=== PATIENT | male | born 1975 | race Two or more races ===

== ENCOUNTER 2020-10-06 14:59 | Observation (INO) | payer MEDICAID ==
[~2020-10-06] VITALS: Ht 177.8 cm; Wt 149.7 kg
[~2020-10-06 14:59] MED LIST: ALPR1TAB7 PO; ASPI-231 PO; ATOR20TA PO; CITA-77 PO; ERGO1CAP6 PO; FAMO-12 PO; LISI-275 PO; METF-370 PO; NITR0.4S29 SL; PRAS10TA6 PO; RANO500T2 PO
[2020-10-06 19:00] LABS: Basophils # (auto) 0 10 ^3/uL (0-0.2); Basophils % (auto) 0.5 % (0.0-2.0); Eosinophils # (auto) 0 10 ^3/uL (0-0.8); Eosinophils % (auto) 0.3 % (0.0-7.0); Hematocrit 48.4 % (41.0-53.0); Hemoglobin 15.9 g/dL (13.5-17.5); Lymphocytes # (auto) 1.6 10 ^3/uL (0.4-5.4); Lymphocytes % (auto) 20.9 % (10.0-50.0); Mean Corpuscular Hemoglobin 27.4 pg (28.0-32.0); Mean Corpuscular Hgb Conc. 32.9 g/dL (32.0-36.0); Mean Corpuscular Volume 83.4 fL (80.0-100.0); Monocytes # (auto) 0.5 10 ^3/uL (0-1.3); Monocytes % (auto) 6.2 % (0.0-12.0); Neutrophils # (auto) 5.5 10 ^3/uL (1.6-8.6); Neutrophils % (auto) 72.1 % (37.0-80.0); Nucleated Red Blood Cells % 0.2 %; Platelet Count (auto) 258 10^3/uL (140-450); Red Blood Cells 5.81 10^6/uL (4.5-5.90); Red Cell Distribution Width 15.1 % (11.8-14.3); White Blood Cell 7.7 10^3/uL (4.4-10.8)
[2020-10-06 19:12] LABS: INR 1.1 (0.9-1.15); Partial Thromboplastin Time 25.9 sec (23.0-31.2)
[2020-10-06 19:37] LABS: Alanine Aminotransferase 31 U/L (16-61); Albumin 3.2 g/dL (3.4-5.0); Anion Gap 10 (5-15); Blood Urea Nitrogen 19 mg/dL (7-18); Calcium 8.7 mg/dL (8.5-10.1); Carbon Dioxide 21 mmol/L (21-32); Chloride 106 mmol/L (98-107); Glucose 96 mg/dL (74-106); Magnesium 2.3 mg/dL (1.6-2.6); Potassium 4.2 mmol/L (3.5-5.1); Sodium 137 mmol/L (136-145)
[2020-10-06 19:42] LABS: Alkaline Phosphatase 130 U/L (45-117); Aspartate Aminotransferase 19 U/L (15-37); BUN/Creatinine Ratio 10.7; Bilirubin, Total 0.9 mg/dL (0.2-1.0); GFR African American 53 mL/min; GFR Non-African American 44 mL/min; Total Protein 8.9 g/dL (6.4-8.2)
[2020-10-06] MEDS ORDERED: ALPRAZolam 0.5 MG TAB PO ONE (21:15)
[2020-10-07] MEDS ORDERED: ONDANSETRON HCL 4 MG/2 ML VIAL IV PRN (01:00)
[2020-10-07] MEDS ORDERED: SOD CHL 0.45% 1,000 ML IV ONE (01:00)
[2020-10-07] MEDS ORDERED: MORPHINE SULF INJ 2 MG/ML SYRINGE 1ML IV PRN (01:00)
[2020-10-07] MEDS ORDERED: hydrALAZINE HCL 20 MG/ML VL IV PRN (01:00)
[2020-10-07] MEDS ORDERED: NITROGLYCERIN 0.4 MG SL TAB SL PRN (01:00)
[2020-10-07] MEDS: ATORVASTATIN 20 MG TAB PO SCH ×2 (09:14→10:00)
[2020-10-07] MEDS: ENOXAPARIN SOD 40 MG/0.4 ML SYRINGE SC SCH ×2 (09:14→10:00)
[2020-10-07] MEDS: METOPROLOL TARTRATE 25 MG TAB PO SCH ×2 (09:15→22:36)
[2020-10-07] MEDS: ASPirin 81 mg TAB PO SCH ×2 (09:15→10:00)
[2020-10-07] MEDS ORDERED: ASCORBIC ACID 500 MG TAB PO SCH (17:00)
[2020-10-07] MEDS ORDERED: CHOLECALCIFEROL (VITD3) 2,000 UNIT CAP/TAB PO SCH (17:00)
[2020-10-07] MEDS ORDERED: ZINC SULFATE 220mg CAP or TAB PO SCH (17:00)
[2020-10-07] MEDS ORDERED: ASCO500T11 PO (17:06)
[2020-10-07] MEDS ORDERED: ALBUAER3 IN (17:06)
[2020-10-07] MEDS ORDERED: ZINC220T6 PO (17:06)
[2020-10-07] MEDS ORDERED: ALPRAZolam 0.5 MG TAB PO ONE (19:15)
[2020-10-07] MEDS ORDERED: ALBUTEROL SULF HFA 90MCG INH 200DOSE IN SCH (22:00)
[2020-10-07] MEDS ORDERED: ALBUTEROL SULF HFA 90MCG INH 200DOSE IN PRN (22:15)
[2020-10-08 05:51] VITALS: BP 109/75
[2020-10-13] MEDS ORDERED: CLOP75TA28 PO (15:28)
== END 2020-10-08 06:41 | disposition home or self-care (01) ==
LOC: EDBD 14:59 → ER 15:00 → TELE-WESTW 15:01 → UNDOADMOB 15:01 → OVERFLOW 10-07 00:49 → UNDOADMOB 10-07 01:21 → OVERFLOW 10-07 01:21 → UNDODISOB 10-08 06:41 → OVERFLOW 10-08 06:41
PROVIDERS: ADMIT Internal Medicine; ATTEND Hospitalist
DX: U07.1 COVID-19 (principal); J12.89 Other viral pneumonia; R07.89 Other chest pain; E66.01 Morbid (severe) obesity due to excess calories; E11.9 Type 2 diabetes mellitus without complications; E55.9 Vitamin D deficiency, unspecified; F41.8 Other specified anxiety disorders; I10 Essential (primary) hypertension; I25.110 Atherosclerotic heart disease of native coronary artery with unstable angina pectoris; E78.5 Hyperlipidemia, unspecified; E78.00 Pure hypercholesterolemia, unspecified; Z79.899 Other long term (current) drug therapy; Z79.84 Long term (current) use of oral hypoglycemic drugs; Z88.0 Allergy status to penicillin; Z79.82 Long term (current) use of aspirin; Z68.42 Body mass index [BMI] 45.0-49.9, adult; Z95.5 Presence of coronary angioplasty implant and graft
CPT/HCPCS: 36415; 71045; 80053; 83735; 83880; 84443; 84484; 85025; 85379; 85610; 85730; 87426; 93005; 96360; 96361; 96372; 99285; G0378; J1650

== ENCOUNTER 2023-05-21 16:10 | Emergency (ER) | payer MEDICAID ==
[~2023-05-21] VITALS: Ht 172.7 cm; Wt 140.8 kg
[~2023-05-21 16:10] MED LIST changes: +ALBUAER3 IN; +ASCO500T11 PO; -ASPI-231 PO; +ASPI1TAB20 PO; +CLOP75TA28 PO; +PRAS10TA19 PO; -PRAS10TA6 PO; +ZINC220T6 PO
[2023-05-21] MEDS ORDERED: MECLIZINE HCL 25 MG TAB PO ONE (17:00)
[2023-05-21] MEDS ORDERED: ONDANSETRON ODT 4 MG TAB PO ONE (17:00)
[2023-05-21 17:26] LABS: Basophils # (auto) 0.1 10 ^3/uL (0-0.2); Basophils % (auto) 0.8 % (0.0-2.0); Eosinophils # (auto) 0.2 10 ^3/uL (0-0.8); Eosinophils % (auto) 2.2 % (0.0-7.0); Hematocrit 46.9 % (41.0-53.0); Hemoglobin 15.4 g/dL (13.5-17.5); Lymphocytes # (auto) 1.2 10 ^3/uL (0.4-5.4); Lymphocytes % (auto) 15.8 % (10.0-50.0); Mean Corpuscular Hgb Conc. 32.9 g/dL (32.0-36.0); Mean Corpuscular Volume 85.1 fL (80.0-100.0); Monocytes # (auto) 0.7 10 ^3/uL (0-1.3); Monocytes % (auto) 8.4 % (0.0-12.0); Neutrophils # (auto) 5.6 10 ^3/uL (1.6-8.6); Neutrophils % (auto) 72.8 % (37.0-80.0); Nucleated Red Blood Cells % 0.1 %; Red Blood Cells 5.52 10^6/uL (4.5-5.90); Red Cell Distribution Width 14.5 % (11.8-14.3); White Blood Cell 7.8 10^3/uL (4.4-10.8)
[2023-05-21 17:44] LABS: Albumin 3.2 g/dL (3.4-5.0); Calcium 8.5 mg/dL (8.5-10.1); Magnesium 2.5 mg/dL (1.6-2.6); Potassium 4.3 mmol/L (3.5-5.1)
[2023-05-21 17:47] LABS: Bilirubin, Total 0.7 mg/dL (0.2-1.0); Total Protein 7.4 g/dL (6.4-8.2)
[2023-05-21 18:01] VITALS: PULSE 80; RESP 20; O2SAT 96
[2023-05-21 18:39] VITALS: BP 127/67; PULSE 77; RESP 13; O2SAT 95
[2023-05-21 19:03] LABS: INR 1.04 (0.9-1.15); Partial Thromboplastin Time 29.3 SEC (24.5-34.5)
[2023-05-21] MEDS ORDERED: MECL25CH38 PO (19:31)
== END 2023-05-21 22:42 | disposition home or self-care (01) ==
LOC: ER 16:10
DX: R42 Dizziness and giddiness (principal); R07.89 Other chest pain; I10 Essential (primary) hypertension; I25.2 Old myocardial infarction; I25.10 Atherosclerotic heart disease of native coronary artery without angina pectoris; E78.5 Hyperlipidemia, unspecified; Z88.0 Allergy status to penicillin; Z79.01 Long term (current) use of anticoagulants; Z79.82 Long term (current) use of aspirin; Z79.899 Other long term (current) drug therapy
CPT/HCPCS: 36415; 70450; 71045; 80053; 83735; 83880; 84484; 85025; 85610; 85730; 93005; 99285; J8597; Q0162

== ENCOUNTER 2023-08-04 19:09 | Inpatient (IN) | payer MEDICAID ==
[~2023-08-04] VITALS: Ht 175.3 cm; Wt 144.5 kg
[~2023-08-04 19:09] MED LIST changes: +MECL25CH38 PO
[2023-08-04 19:42] LABS: Basophils # (auto) 0.1 10 ^3/uL (0-0.2); Basophils % (auto) 1.5 % (0.0-2.0); Eosinophils # (auto) 0.3 10 ^3/uL (0-0.8); Eosinophils % (auto) 3.3 % (0.0-7.0); Hemoglobin 15.2 g/dL (13.5-17.5); Lymphocytes # (auto) 1.8 10 ^3/uL (0.4-5.4); Lymphocytes % (auto) 22.8 % (10.0-50.0); Mean Corpuscular Hemoglobin 27.8 pg (28.0-32.0); Mean Corpuscular Hgb Conc. 32.9 g/dL (32.0-36.0); Mean Corpuscular Volume 84.5 fL (80.0-100.0); Monocytes # (auto) 0.6 10 ^3/uL (0-1.3); Monocytes % (auto) 7.8 % (0.0-12.0); Neutrophils # (auto) 5.1 10 ^3/uL (1.6-8.6); Neutrophils % (auto) 64.6 % (37.0-80.0); Nucleated Red Blood Cells % 0.1 %; Red Blood Cells 5.44 10^6/uL (4.5-5.90); Red Cell Distribution Width 15.2 % (11.8-14.3); White Blood Cell 7.8 10^3/uL (4.4-10.8)
[2023-08-04 20:01] LABS: Alanine Aminotransferase 32 U/L (7-40); Alkaline Phosphatase 93 U/L (46-116); Anion Gap 10 (5-15); Aspartate Aminotransferase 28 U/L (13-40); BUN/Creatinine Ratio 11.7 (10.0-20.0); Blood Urea Nitrogen 21 mg/dL (9-23); Calcium 8.6 mg/dL (8.7-10.4); Carbon Dioxide 23 mmol/L (20-30); Chloride 106 mmol/L (98-107); Glucose 153 mg/dL (74-106); Magnesium 1.8 mg/dL (1.6-2.6); Potassium 4.3 mmol/L (3.5-5.1); Sodium 139 mmol/L (136-145)
[2023-08-04 20:02] LABS: Bilirubin, Total 0.8 mg/dL (0.2-1.0); Total Protein 6.9 g/dL (5.7-8.2)
[2023-08-04] MEDS ORDERED: DEXTROSE (50%) 50ML SYRG IV PRN (22:15)
[2023-08-04] MEDS ORDERED: ONDANSETRON HCL 4 MG/2 ML VIAL IV PRN (22:15)
[2023-08-04] MEDS ORDERED: ACETAMINOPHEN 325 MG TAB PO PRN (22:15)
[2023-08-04] MEDS ORDERED: NITROGLYCERIN 0.4 MG SL TAB SL PRN (22:15)
[2023-08-04] MEDS ORDERED: TEMAZEPAM 15 MG CAP PO PRN (22:15)
[2023-08-04] MEDS ORDERED: MORPHINE SULFATE INJ 2 MG/ml SYRG IV PRN (22:15)
[2023-08-04] MEDS ORDERED: ALBUTEROL SULF 2.5 MG/0.5ML(0.5%) NEB SOLN NEB PRN (22:15)
[2023-08-04 22:24] VITALS: BP 125/65; PULSE 99; RESP 20; TEMP 98.2; O2SAT 100
[2023-08-05] MEDS ORDERED: InsuLIN REG 1unit/0.01ml Soln (100units/ml) SC SCH (07:00)
[2023-08-05] MEDS ORDERED: ACCU-CHEK COMFORT CURVE STRIP VI SCH (07:00)
[2023-08-05] MEDS ORDERED: amLODIPine BESYLATE 5 MG TAB PO SCH (10:00)
[2023-08-05] MEDS ORDERED: ENOXAPARIN SOD 40 MG/0.4 ML SYRINGE SC SCH (10:00)
[2023-08-05] MEDS ORDERED: RANOLAZINE ER 500 MG TAB PO SCH (10:00)
[2023-08-05] MEDS ORDERED: ASPirin 81 mg TAB PO SCH (10:00)
[2023-08-05] MEDS ORDERED: CLOPIDOGREL BISULFATE 75 MG TAB PO SCH (10:00)
[2023-08-05] MEDS ORDERED: LOSARTAN POTASSIUM 25 MG TAB PO SCH (10:00)
[2023-08-05 11:05] LABS: Basophils # (auto) 0.1 10 ^3/uL (0-0.2); Basophils % (auto) 0.6 % (0.0-2.0); Eosinophils # (auto) 0.2 10 ^3/uL (0-0.8); Eosinophils % (auto) 2.6 % (0.0-7.0); Hematocrit 46.7 % (41.0-53.0); Hemoglobin 15.4 g/dL (13.5-17.5); Lymphocytes # (auto) 1.9 10 ^3/uL (0.4-5.4); Lymphocytes % (auto) 22.2 % (10.0-50.0); Mean Corpuscular Hemoglobin 27.9 pg (28.0-32.0); Mean Corpuscular Hgb Conc. 32.9 g/dL (32.0-36.0); Mean Corpuscular Volume 84.9 fL (80.0-100.0); Monocytes # (auto) 0.8 10 ^3/uL (0-1.3); Neutrophils # (auto) 5.5 10 ^3/uL (1.6-8.6); Neutrophils % (auto) 65.6 % (37.0-80.0); Nucleated Red Blood Cells % 0.3 %; Red Cell Distribution Width 15.2 % (11.8-14.3); White Blood Cell 8.4 10^3/uL (4.4-10.8)
[2023-08-05 11:20] LABS: Anion Gap 6 (5-15); Blood Urea Nitrogen 13 mg/dL (9-23); Carbon Dioxide 24 mmol/L (20-30); Chloride 106 mmol/L (98-107); Glucose 98 mg/dL (74-106); Potassium 4.2 mmol/L (3.5-5.1); Sodium 136 mmol/L (136-145)
[2023-08-05] MEDS ORDERED: ATORVASTATIN 20 MG TAB PO SCH (22:00)
== END 2023-08-05 17:59 | disposition left against medical advice (07) | DRG 198 ==
LOC: ER 19:09 → TELE 22:19
PROVIDERS: ADMIT Nurse Practitioner; ATTEND Nurse Practitioner
DX: I24.9 Acute ischemic heart disease, unspecified (principal); E11.9 Type 2 diabetes mellitus without complications; E66.01 Morbid (severe) obesity due to excess calories; E78.5 Hyperlipidemia, unspecified; Z68.42 Body mass index [BMI] 45.0-49.9, adult; I10 Essential (primary) hypertension; I25.119 Atherosclerotic heart disease of native coronary artery with unspecified angina pectoris; I25.2 Old myocardial infarction; Z82.49 Family history of ischemic heart disease and other diseases of the circulatory system; Z83.3 Family history of diabetes mellitus; Z88.0 Allergy status to penicillin; Z98.61 Coronary angioplasty status; F32.A Depression, unspecified
CPT/HCPCS: 36415; 71045; 80048; 80053; 83735; 84484; 85025; 93005; G0378

== ENCOUNTER 2023-09-20 22:41 | Emergency (ER) | payer MEDICAID ==
[~2023-09-20] VITALS: Ht 175.3 cm; Wt 145.0 kg
[2023-09-20 23:26] LABS: Basophils # (auto) 0.1 10 ^3/uL (0-0.2); Basophils % (auto) 0.8 % (0.0-2.0); Eosinophils # (auto) 0.2 10 ^3/uL (0-0.8); Eosinophils % (auto) 2.2 % (0.0-7.0); Hematocrit 45.7 % (41.0-53.0); Hemoglobin 14.9 g/dL (13.5-17.5); Lymphocytes # (auto) 1.7 10 ^3/uL (0.4-5.4); Lymphocytes % (auto) 19.5 % (10.0-50.0); Mean Corpuscular Hemoglobin 27.9 pg (28.0-32.0); Mean Corpuscular Hgb Conc. 32.6 g/dL (32.0-36.0); Mean Corpuscular Volume 85.5 fL (80.0-100.0); Monocytes # (auto) 0.6 10 ^3/uL (0-1.3); Monocytes % (auto) 7.2 % (0.0-12.0); Neutrophils # (auto) 6.1 10 ^3/uL (1.6-8.6); Neutrophils % (auto) 70.3 % (37.0-80.0); Nucleated Red Blood Cells % 0.2 %; Red Blood Cells 5.34 10^6/uL (4.5-5.90); White Blood Cell 8.7 10^3/uL (4.4-10.8)
[2023-09-20 23:34] LABS: INR 1.05 (0.9-1.15); Partial Thromboplastin Time 28.8 SEC (24.5-34.5)
[2023-09-20 23:43] LABS: Alanine Aminotransferase 20 U/L (7-40); Alkaline Phosphatase 80 U/L (46-116); Anion Gap 8 (5-15); Aspartate Aminotransferase 19 U/L (13-40); BUN/Creatinine Ratio 7.4 (10.0-20.0); Bilirubin, Total 0.6 mg/dL (0.2-1.0); Blood Urea Nitrogen 11 mg/dL (9-23); Calcium 8.9 mg/dL (8.5-10.1); Carbon Dioxide 23 mmol/L (20-30); Chloride 110 mmol/L (98-107); Glucose 98 mg/dL (74-106); Potassium 4.3 mmol/L (3.5-5.1); Sodium 141 mmol/L (136-145); Total Protein 7.1 g/dL (5.7-8.2)
[2023-09-20 23:59] LABS: Magnesium 1.8 mg/dL (1.6-2.6)
[2023-09-21 02:43] VITALS: BP 138/96; PULSE 66; RESP 18; TEMP 98.2; O2SAT 98
== END 2023-09-21 02:50 | disposition home or self-care (01) ==
LOC: EDUNIT# 22:41 → EDBD 22:41 → ER 22:41
DX: R07.89 Other chest pain (principal); R42 Dizziness and giddiness; I10 Essential (primary) hypertension; E78.5 Hyperlipidemia, unspecified; F32.9 Major depressive disorder, single episode, unspecified; F41.9 Anxiety disorder, unspecified; I25.2 Old myocardial infarction; Z98.890 Other specified postprocedural states; Z88.8 Allergy status to other drugs, medicaments and biological substances; Z79.899 Other long term (current) drug therapy
CPT/HCPCS: 36415; 71045; 80053; 83735; 83880; 84443; 84484; 85025; 85610; 85730; 93005

== ENCOUNTER 2023-11-15 13:10 | Inpatient (IN) | payer MEDICAID ==
[~2023-11-15] VITALS: Ht 175.3 cm; Wt 145.4 kg
[2023-11-15 13:55] LABS: Urine Epithelial Cast None Seen /hpf (<5)
[2023-11-15 14:04] LABS: Basophils # (auto) 0.1 10 ^3/uL (0-0.2); Basophils % (auto) 0.6 % (0.0-2.0); Eosinophils # (auto) 0.1 10 ^3/uL (0-0.8); Eosinophils % (auto) 1.5 % (0.0-7.0); Hematocrit 48.8 % (41.0-53.0); Lymphocytes # (auto) 1.7 10 ^3/uL (0.4-5.4); Lymphocytes % (auto) 18.6 % (10.0-50.0); Mean Corpuscular Hemoglobin 27.1 pg (28.0-32.0); Mean Corpuscular Hgb Conc. 32.9 g/dL (32.0-36.0); Mean Corpuscular Volume 82.6 fL (80.0-100.0); Monocytes # (auto) 0.5 10 ^3/uL (0-1.3); Monocytes % (auto) 5.1 % (0.0-12.0); Neutrophils # (auto) 6.8 10 ^3/uL (1.6-8.6); Neutrophils % (auto) 74.2 % (37.0-80.0); Nucleated Red Blood Cells % 0.2 %; Red Blood Cells 5.91 10^6/uL (4.5-5.90); Red Cell Distribution Width 14.7 % (11.8-14.3); White Blood Cell 9.2 10^3/uL (4.4-10.8)
[2023-11-15 14:15] LABS: Chloride 109 mmol/L (98-107); Sodium 140 mmol/L (136-145)
[2023-11-15 14:16] LABS: Anion Gap 8 (5-15); Calcium 8.8 mg/dL (8.7-10.4); Carbon Dioxide 23 mmol/L (20-30)
[2023-11-15 14:21] LABS: BUN/Creatinine Ratio 11.3 (10.0-20.0); Blood Urea Nitrogen 17 mg/dL (9-23); Glucose 100 mg/dL (74-106)
[2023-11-15] MEDS ORDERED: ASPirin 325 MG TAB PO ONE (14:30)
[2023-11-15] MEDS ORDERED: NITROGLYCERIN 0.4 MG SL TAB SL ONE (14:30)
[2023-11-15 14:49] LABS: Urine Bacteria NONE SEEN /hpf (None Seen); Urine Blood TRACE /uL (Negative); Urine Clarity Clear (Clear); Urine Color Yellow (Yellow); Urine Hyaline Cast FEW /lpf (0 - 2); Urine Mucus FEW (None Seen); Urine Protein, UAD 1+ (Negative); Urine Specific Gravity 1.022 (1.001-1.035); Urine Urobilinogen Normal (Negative); Urine WBC 2 /hpf (0 - 3); Urine pH 5.5 (5.0-8.0)
[2023-11-15] MEDS ORDERED: NITROGLYCERIN 0.4 MG SL TAB SL PRN (15:15)
[2023-11-15] MEDS ORDERED: ACETAMINOPHEN 325 MG TAB PO PRN (15:15)
[2023-11-15] MEDS ORDERED: HYDROcodone-ACET 5/325MG TAB PO PRN (15:15)
[2023-11-15] MEDS ORDERED: MORPHINE SULFATE INJ 2 MG/ml SYRG IV PRN (15:15)
[2023-11-15] MEDS ORDERED: ONDANSETRON HCL 4 MG/2 ML VIAL IV PRN (15:15)
[2023-11-15] MEDS ORDERED: DOCUSATE SOD 100 MG CAP PO PRN (15:15)
[2023-11-15] MEDS ORDERED: guaiFENesin 200 MG/10 ML UD GT PRN (15:30)
[2023-11-15] MEDS ORDERED: DEXTROSE (50%) 50ML SYRG IV PRN (15:30)
[2023-11-15 16:06] VITALS: BP 139/89; PULSE 93; RESP 18; TEMP 98.1
[2023-11-15] MEDS ORDERED: InsuLIN REG 1unit/0.01ml Soln (100units/ml) SC SCH (17:00)
[2023-11-15] MEDS ORDERED: ACCU-CHEK COMFORT CURVE STRIP VI SCH (17:00)
[2023-11-15] MEDS ORDERED: ATORVASTATIN 20 MG TAB PO SCH (18:00)
[2023-11-15] MEDS ORDERED: LISINOPRIL 5 MG TAB PO SCH (18:00)
[2023-11-15] MEDS ORDERED: FAMOTIDINE 20 MG TAB PO SCH (18:00)
[2023-11-15] MEDS ORDERED: ALBUTEROL SULF 2.5 MG/0.5ML(0.5%) NEB SOLN NEB SCH (18:00)
[2023-11-15] MEDS ORDERED: CITALOPRAM HYDROBR 20 MG TAB PO SCH (18:00)
[2023-11-15] MEDS ORDERED: IPRATROPIUM BROM 0.5 MG/2.5ML INH SOL NEB SCH (18:00)
[2023-11-15] MEDS ORDERED: ASPirin-EC 81 mg tab PO SCH (18:00)
[2023-11-15 18:26] LABS: COVID19 ANTIGEN SOFIA FIA NEGATIVE (NEGATIVE); Rapid Influenza A Negative (Negative); Rapid Influenza B Negative (Negative)
[2023-11-15 18:40] VITALS: PULSE 72; RESP 20; O2SAT 96
[2023-11-15] MEDS ORDERED: RANOLAZINE ER 500 MG TAB PO SCH (22:00)
[2023-11-15] MEDS ORDERED: Alprazolam 1mg PO SCH (22:00)
[2023-11-16] MEDS ORDERED: CLOPIDOGREL BISULFATE 75 MG TAB PO SCH (10:00)
== END 2023-11-15 19:38 | disposition left against medical advice (07) | DRG 198 ==
LOC: ER 13:10 → TELE 15:22
PROVIDERS: ADMIT Nurse Practitioner Family; ATTEND Nurse Practitioner Family
DX: I24.9 Acute ischemic heart disease, unspecified (principal); I11.0 Hypertensive heart disease with heart failure; I50.9 Heart failure, unspecified; E11.9 Type 2 diabetes mellitus without complications; I25.10 Atherosclerotic heart disease of native coronary artery without angina pectoris; E78.5 Hyperlipidemia, unspecified; Z20.822 Contact with and (suspected) exposure to COVID-19; F32.A Depression, unspecified; F41.9 Anxiety disorder, unspecified; Z53.29 Procedure and treatment not carried out because of patient's decision for other reasons; E66.01 Morbid (severe) obesity due to excess calories; Z88.0 Allergy status to penicillin; Z79.899 Other long term (current) drug therapy; Z82.49 Family history of ischemic heart disease and other diseases of the circulatory system; Z83.3 Family history of diabetes mellitus; I25.2 Old myocardial infarction; Z98.61 Coronary angioplasty status; Z68.42 Body mass index [BMI] 45.0-49.9, adult
CPT/HCPCS: 36415; 71045; 80048; 81001; 82962; 84484; 85025; 85379; 87426; 87804; 93005; 99291; G0378

== ENCOUNTER 2024-01-13 14:15 | Inpatient (IN) | payer MEDICAID ==
[~2024-01-13] VITALS: Ht 175.3 cm; Wt 154.6 kg
[2024-01-13 15:00] VITALS: PULSE 85; RESP 22; O2SAT 92
[2024-01-13] MEDS: NITROGLYCERIN 0.4 MG SL TAB SL ONE (15:00)
[2024-01-13 15:02] LABS: Basophils # (auto) 0.1 10 ^3/uL (0-0.2); Eosinophils # (auto) 0.1 10 ^3/uL (0-0.8); Hemoglobin 16.1 g/dL (13.5-17.5); Monocytes # (auto) 0.5 10 ^3/uL (0-1.3)
[2024-01-13 15:05] LABS: Basophils % (auto) 0.9 % (0.0-2.0); Hematocrit 49.1 % (41.0-53.0); Lymphocytes # (auto) 1.3 10 ^3/uL (0.4-5.4); Lymphocytes % (auto) 14.4 % (10.0-50.0); Mean Corpuscular Hemoglobin 26.8 pg (28.0-32.0); Mean Corpuscular Hgb Conc. 32.7 g/dL (32.0-36.0); Mean Corpuscular Volume 81.9 fL (80.0-100.0); Monocytes % (auto) 5.5 % (0.0-12.0); Neutrophils % (auto) 78.2 % (37.0-80.0); Nucleated Red Blood Cells % 0.2 %; Red Cell Distribution Width 15.5 % (11.8-14.3); White Blood Cell 8.9 10^3/uL (4.4-10.8)
[2024-01-13 15:15] LABS: Alanine Aminotransferase 32 U/L (7-40); Albumin 4.2 g/dL (3.2-4.8); Alkaline Phosphatase 119 U/L (46-116); Anion Gap 7 (5-15); Aspartate Aminotransferase 24 U/L (13-40); BUN/Creatinine Ratio 11.2 (10.0-20.0); Bilirubin, Total 1.1 mg/dL (0.2-1.0); Blood Urea Nitrogen 17 mg/dL (9-23); Calcium 9.1 mg/dL (8.5-10.1); Carbon Dioxide 23 mmol/L (20-30); Chloride 111 mmol/L (98-107); Glucose 112 mg/dL (74-106); Potassium 4.4 mmol/L (3.5-5.1); Sodium 141 mmol/L (136-145); Total Protein 7.2 g/dL (5.7-8.2)
[2024-01-13] MEDS: SODIUM CHLORIDE 0.9% 500 ML IV ONE (15:37)
[2024-01-13] MEDS ORDERED: ERGOCALCIFEROL 50,000 UNIT(1.25MG) CAP PO SCH (15:45)
[2024-01-13] MEDS ORDERED: ALPRAZolam 0.5 MG TAB PO PRN (15:45)
[2024-01-13] MEDS ORDERED: NITROGLYCERIN 0.4 MG SL TAB SL PRN (16:00)
[2024-01-13] MEDS ORDERED: MORPHINE SULFATE INJ 2 MG/ml SYRG IV PRN (16:00)
[2024-01-13] MEDS ORDERED: ACETAMINOPHEN 325 MG TAB PO PRN (16:00)
[2024-01-13 16:11] LABS: LDL Cholesterol 92 mg/dL (< 100); Triglycerides 156 mg/dL (< 150)
[2024-01-13 16:13] LABS: Cholesterol 152 mg/dL (< 200); HDL Cholesterol 41 mg/dL (40-59)
[2024-01-13 18:37] VITALS: BP 145/91; PULSE 68; RESP 16; TEMP 98.3; O2SAT 97
[2024-01-13] MEDS: CITALOPRAM HYDROBR 20 MG TAB PO SCH (18:52)
[2024-01-13] MEDS: ASPirin-EC 81 mg tab PO SCH (18:52)
[2024-01-13] MEDS: LISINOPRIL 5 MG TAB PO SCH (18:53)
[2024-01-13] MEDS: ATORVASTATIN 20 MG TAB PO SCH (18:53)
[2024-01-13] MEDS: PRASUGREL HCL 10 MG TAB PO SCH (18:53)
[2024-01-13] MEDS: FAMOTIDINE 20 MG TAB PO SCH (18:53)
[2024-01-13 20:00] VITALS: PULSE 79
[2024-01-13 20:20] VITALS: PULSE 70; RESP 18; O2SAT 97
[2024-01-13 21:00] VITALS: BP 149/96; PULSE 72; RESP 20; TEMP 98.4; O2SAT 90
[2024-01-13] MEDS: ASCORBIC ACID 500 MG TAB PO SCH (21:14)
[2024-01-13] MEDS: RANOLAZINE ER 500 MG TAB PO SCH (21:16)
[2024-01-13] MEDS: MORPHINE SULFATE INJ 2 MG/ml SYRG IV PRN (22:23)
[2024-01-14] VITALS (7 sets, daily range): BP systolic 124–148; BP diastolic 69–93; PULSE 57–85; RESP 16–20; TEMP 98–98.7; O2SAT 92–97
[2024-01-14 04:45] LABS: Basophils # (auto) 0.1 10 ^3/uL (0-0.2); Eosinophils # (auto) 0.1 10 ^3/uL (0-0.8); Nucleated Red Blood Cells % 0.1 %; Red Cell Distribution Width 15.6 % (11.8-14.3)
[2024-01-14 04:48] LABS: Basophils % (auto) 0.7 % (0.0-2.0); Eosinophils % (auto) 0.9 % (0.0-7.0); Hemoglobin 15.5 g/dL (13.5-17.5); Lymphocytes # (auto) 2.2 10 ^3/uL (0.4-5.4); Lymphocytes % (auto) 20.2 % (10.0-50.0); Mean Corpuscular Hemoglobin 26.9 pg (28.0-32.0); Mean Corpuscular Hgb Conc. 32.9 g/dL (32.0-36.0); Mean Corpuscular Volume 81.8 fL (80.0-100.0); Monocytes # (auto) 0.7 10 ^3/uL (0-1.3); Monocytes % (auto) 6.2 % (0.0-12.0); Neutrophils # (auto) 7.7 10 ^3/uL (1.6-8.6); Red Blood Cells 5.75 10^6/uL (4.5-5.90); White Blood Cell 10.7 10^3/uL (4.4-10.8)
[2024-01-14 05:00] LABS: Alanine Aminotransferase 23 U/L (7-40); Albumin 3.9 g/dL (3.2-4.8); Alkaline Phosphatase 105 U/L (46-116); Anion Gap 8 (5-15); BUN/Creatinine Ratio 8.6 (10.0-20.0); Blood Urea Nitrogen 12 mg/dL (9-23); Calcium 9.2 mg/dL (8.7-10.4); Carbon Dioxide 22 mmol/L (20-30); Chloride 109 mmol/L (98-107); Glucose 94 mg/dL (74-106); Sodium 139 mmol/L (136-145)
[2024-01-14 05:01] LABS: Aspartate Aminotransferase 16 U/L (13-40); Bilirubin, Total 1.3 mg/dL (0.2-1.0); Total Protein 7.1 g/dL (5.7-8.2)
[2024-01-14] MEDS: ZINC SULFATE 220mg CAP or TAB PO SCH (09:10)
[2024-01-14] MEDS: CLOPIDOGREL BISULFATE 75 MG TAB PO SCH (09:10)
[2024-01-14] MEDS: ENOXAPARIN SOD 40 MG/0.4 ML SYRINGE SC SCH (09:11)
[2024-01-14] MEDS: METOPROLOL SUCCINATE XL 50 MG TAB PO SCH (18:30)
[2024-01-15] VITALS (8 sets, daily range): BP systolic 111–147; BP diastolic 72–97; PULSE 59–73; RESP 18–20; TEMP 97.7–98.7; O2SAT 92–97
[2024-01-15] MEDS: CLOPIDOGREL BISULFATE 75 MG TAB PO SCH (09:37)
[2024-01-16 05:00] VITALS: BP 105/69; PULSE 66; RESP 17; TEMP 97.9; O2SAT 97
[2024-01-16 08:00] VITALS: BP 137/68; PULSE 80; RESP 20; TEMP 98.6; O2SAT 100
[2024-01-16] MEDS ORDERED: METO25TA93 PO (10:28)
[2024-01-16 12:45] VITALS: BP 129/65; PULSE 80; RESP 18; TEMP 98.6; O2SAT 96
[2024-01-16] MEDS: MECLIZINE HCL 25 MG TAB PO PRN (13:26)
== END 2024-01-16 16:00 | disposition home or self-care (01) | DRG 201 ==
LOC: EDUNIT# 14:15 → EDBD 14:15 → ER 14:29 → TELE 16:02 → TELE-EAST 18:33
PROVIDERS: ADMIT Nurse Practitioner Family; ATTEND Family Medicine
DX: I49.3 Ventricular premature depolarization (principal); I50.33 Acute on chronic diastolic (congestive) heart failure; Z68.43 Body mass index [BMI] 50.0-59.9, adult; I11.0 Hypertensive heart disease with heart failure; R42 Dizziness and giddiness; F41.9 Anxiety disorder, unspecified; E66.01 Morbid (severe) obesity due to excess calories; E78.00 Pure hypercholesterolemia, unspecified; G47.30 Sleep apnea, unspecified; F32.A Depression, unspecified; I25.2 Old myocardial infarction; Z88.0 Allergy status to penicillin; Z83.3 Family history of diabetes mellitus; Z82.49 Family history of ischemic heart disease and other diseases of the circulatory system; Z98.61 Coronary angioplasty status; Z80.3 Family history of malignant neoplasm of breast; Z79.82 Long term (current) use of aspirin
CPT/HCPCS: 36415; 71045; 80053; 80061; 83605; 83880; 83930; 84443; 84484; 85025; 85379; 93005; 93306; 96360; G0378

== ENCOUNTER 2024-10-07 19:27 | Inpatient (IN) | payer MEDICAID ==
[~2024-10-07] VITALS: Ht 167.6 cm; Wt 68.0 kg
[~2024-10-07 19:27] MED LIST changes: +METO25TA93 PO
[2024-10-07 20:08] LABS: Basophils # (auto) 0.1 10 ^3/uL (0-0.2); Basophils % (auto) 0.8 % (0.0-2.0); Eosinophils # (auto) 0.1 10 ^3/uL (0-0.8); Hemoglobin 16.1 g/dL (13.5-17.5); Lymphocytes # (auto) 1.4 10 ^3/uL (0.4-5.4); Monocytes # (auto) 0.4 10 ^3/uL (0-1.3); Neutrophils # (auto) 7.3 10 ^3/uL (1.6-8.6); White Blood Cell 9.3 10^3/uL (4.4-10.8)
[2024-10-07 20:09] LABS: Eosinophils % (auto) 1.2 % (0.0-7.0); Hematocrit 49.1 % (41.0-53.0); Lymphocytes % (auto) 15.5 % (10.0-50.0); Mean Corpuscular Hemoglobin 26.9 pg (28.0-32.0); Mean Corpuscular Hgb Conc. 32.8 g/dL (32.0-36.0); Mean Corpuscular Volume 82.1 fL (80.0-100.0); Monocytes % (auto) 4.2 % (0.0-12.0); Neutrophils % (auto) 78.3 % (37.0-80.0); Nucleated Red Blood Cells % 0.1 %; Platelet Count (auto) 227 10^3/uL (140-450); Red Blood Cells 5.98 10^6/uL (4.5-5.90); Red Cell Distribution Width 15.9 % (11.8-14.3)
[2024-10-07 20:14] LABS: Potassium 4.2 mmol/L (3.5-5.1); Sodium 142 mmol/L (136-145)
[2024-10-07 20:15] LABS: Anion Gap 9 (5-15); Carbon Dioxide 23 mmol/L (20-31)
[2024-10-07 20:16] LABS: Calcium 9.4 mg/dL (8.7-10.4)
--- NOTE | 2024-10-07 20:17 | ED.PDOC ---
HPI Comments 48-year-old male who came to ER via EMS for chest pains. Patient does have history of hypertension, dyslipidemia, CAD, CT, status post cardiac stents. He does have anxiety also. Patient states for the past 2 hours he has been having left shoulder pain, radiating down his left arm and dowm the left side of his chest. States he started feeling short of breath, dizzy and weak. Persistence of symptoms prompted patient to come to the ER. Chief Complaint: Chest Pain Time Seen by MD: 20:16 Primary Care Provider: THUY Reviewed Notes: Nurses Notes Allergies: Coded Allergies: Penicillins (Verified Allergy, Unknown, 06/15/17) Home Meds Active Scripts Metoprolol Succinate (Metoprolol Succinate Er) 25 Mg Tab, 1 TAB PO DAILY, #90 TAB 1 Refill Prov:ROBERT LIMON MD 01/16/24 Meclizine HCl (Meclizine) 25 Mg Chw, 25 MG PO Q8HP PRN, #14 CHW Prov:CHEN OHARA MD 05/21/23 Clopidogrel Bisulfate (Plavix) 75 Mg Tab, 75 MG PO DAILY, #30 MG Prov:CHENG PALACIOS MD 10/13/20 Albuterol Sulfate (VENTOLIN MDI) 90 Mcg Ih, 90 MCG IN Q6HP PRN, #1 INH Prov:CHENG PALACIOS MD 10/07/20 Zinc Sulfate (Zinc Sulfate) 220 Mg Tab, 220 MG PO DAILY, #30 TAB Prov:CHENG PALACIOS MD 10/07/20 Ascorbic Acid (VITAMIN C TABLET) 500 Mg Tb, 500 MG PO BID, #20 MG Prov:CHENG PALACIOS MD 10/07/20 Reported Medications Ergocalciferol (Vitamin D) 50,000 Unt Cap, [address]49[address] UNT PO QWEEKLY, CAP 06/18/17 Ranolazine (Ranexa) 500 Mg Tab, 500 MG PO BID, TAB 06/15/17 Lisinopril (Lisinopril) 5 Mg Tab, 5 MG PO QPM for 30 Days, MG 06/15/17 Nitroglycerin (NTROSTAT SUBLINGUAL) 0.4 Mg Sl, 0.4 MG SL PRN *MAY REPEAT EVERY 5 MINUTES X 3 TOTAL IF NO RELIEF, INITIATE ANALGESIC THERAPY. NOTIFY PHYSICIAN *Do not crush. 06/15/17 Alprazolam (Alprazolam) 1 Mg Tab, 1 TAB PO BID, #60 TAB 06/15/17 Atorvastatin Calcium (Lipitor) 20 Mg Tab, 20 MG PO QPM, TAB 06/15/17 Prasugrel Hydrochloride (Effient) 10 Mg Tab, 10 MG PO QPM, TAB 06/15/17 Famotidine (Famotidine) 20 Mg Tab, 20 MG PO QPM for 30 Days, MG 06/15/17 Aspirin (Aspir-81) 81 Mg Tab, 1 TAB PO QPM, #30 TAB 5 Refills 06/15/17 Citalopram Hydrobromide (Citalopram Hydrobromide) 20 Mg Tab, 20 MG PO QPM for 30 Days, MG 06/15/17 Metformin Hydrochloride (Metformin Hcl) 500 Mg Tab, 500 MG PO QPM for 30 Days, MG 06/15/17 Information Source: Patient, Emergency Med Personnel Mode of Arrival: EMS Severity: Moderate Timing: Hours Duration: Since onset Prehospital treatment: 12 Lead EKG Location: Chest (L) Radiation: No Radiation Quality: Aching Onset: At Rest, With Light Exertion Cardiac Risk Factors: Hyperlipidemia, HTN PE Risk Factors: None Modifying Factors: Nothing Associated Signs and Symptoms: SOB Past Medical History PAST MEDICAL HISTORY: Anxiety, CAD, Depression, High Lipids, HTN, CT Surgical History: PTCA Family History Family History: Family hx of DM, Family hx of heart dipika, Family hx of HTN Social History Smoker: Non-Smoker Alcohol: Rarely Drugs: Denies Drug Use Lives In: Home Constitutional: denies: chills, diaphoresis, fatigue, fever, malaise, sweats, weakness, others EENTM: denies: blurred vision, double vision, ear bleeding, ear discharge, ear drainage, ear pain, ear ringing, eye pain, eye redness, hearing loss, mouth pain, mouth swelling, nasal discharge, nose bleeding, nose congestion, nose pain, photophobia, tearing, throat pain, throat swelling, voice changes, others Respiratory: denies: cough, hemoptysis, orthopnea, SOB at rest, shortness of breath, SOB with excertion, stridor, wheezing, others Cardiovascular: reports: chest pain, dizzy spells, left arm pain; denies: diaphoresis, Dyspnea on exertion, edema, irregular heart beat, lightheadedness, palpitations, PND, syncope, others Gastrointestinal: denies: abdomen distended, abdominal pain, blood streaked bowels, constipated, diarrhea, dysphagia, difficulty swallowing, hematemesis, melena, nausea, poor appetite, poor fluid intake, rectal bleeding, rectal pain, vomiting, others Genitourinary: denies: burning, dysuria, flank pain, frequency, hematuria, incontinence, penile discharge, penile sore, pain, testicle pain, testicle swelling, urgency, others Neurological: reports: dizziness, weakness; denies: fainting, headache, left sided numbness, left sided weakness, numbness, paresthesia, pre-existing deficit, right sided numbness, right sided weakness, seizure, speech problems, tingling, tremors, others Musculoskeletal: denies: back pain, gout, joint pain, joint swelling, muscle pain, muscle stiffness, neck pain, others Integumetry: denies: bruises, change in color, change in hair/nails, dryness, laceration, lesions, lumps, rash, wounds, others Allergic/Immunocompromised: denies: Difficulty Healing, Frequent Infections, Hives, Itching, others Hematologic/Lymphatic: denies: anemia, blood clots, easy bleeding, easy bruising, swollen glands, others Endocrine: denies: excessive hunger, excessive sweating, excessive thirst, excessive urination, flushing, intolerance to cold, intolerance to heat, unexplained weight gain, unexplained weight loss, others Psychiatric: denies: anxiety, bipolar disorder, depression, hopeless, panic disorder, schizophrenia, sleepless, suicidal, others Physical Exam General Appearance: No Apparent Distress, Normal HEENT: Normal ENT Inspection, Pharynx Normal, TMs Normal Neck: Full Range of Motion, Non-Tender, Normal, Normal Inspection Respiratory: Chest Non-Tender, Lungs Clear, No Accessory Muscle Use, No Respiratory Distress, Normal Breath Sounds Cardiovascular: No Edema, No JVD, No Murmur, No Gallop, Normal Peripheral Pulses, Regular Rate/Rhythm Breast Exam: Deferred Gastrointestinal: No Organomegaly, Non Tender, No Pulsatile Mass, Normal Bowel Sounds, Soft Genitalia: Deferred Pelvic: Deferred Rectal: Deferred Extremities: No calf tenderness, Normal capillary refill, Normal inspection, Normal range of motion, Non-tender, No pedal edema Musculoskeletal : Apperance: Normal Neurologic: Alert, channel sales director II-XII nml as Tested, No Motor Deficits, Normal Affect, Normal Mood, No Sensory Deficits Cerebellar Function: Normal Reflexes: Normal Skin: Dry, Normal Color, Warm Lymphatic: No Adenopathy Was a procedure done? Was a procedure done?: No CP Differential Dx Differential Diagnosis: Angina, Anxiety / Panic Attack Differential Diagnosis: Angina, Chest Wall Pain, Costochondritis, Esophageal reflux/spasm, Gastritis, Myocardial Infarction X-Ray, Labs, Meds, VS Vital Signs Date Time Temp Pulse Resp B/P (MAP) Pulse Ox O2 Delivery O2 Flow Rate FiO2 10/07/24 22:00 64 19 137/89 (105) 92 10/07/24 21:25 97.9 70 20 170/100 (123) 99 10/07/24 21:03 98.7 66 14 168/99 (122) 96 98.7 10/07/24 21:03 66 14 96 Room Air* 0 21 10/07/24 20:53 65 10/07/24 19:39 67 Lab Test 10/07/24 22:10 10/07/24 19:47 Range/Units Troponin I High Sensitivity < 3 L 3 L </=54 ng/L White Blood Count 9.3 4.4-10.8 10^3/uL Red Blood Count 5.98 H 4.5-5.90 10^6/uL Hemoglobin 16.1 13.5-17.5 g/dL Hematocrit 49.1 41.0-53.0 % Mean Corpuscular Volume 82.1 80.0-100.0 fL Mean Corpuscular Hemoglobin 26.9 L 28.0-32.0 pg Mean Corpuscular Hemoglobin Concent 32.8 32.0-36.0 g/dL Red Cell Distribution Width 15.9 H 11.8-14.3 % Platelet Count 227 140-450 10^3/uL Mean Platelet Volume 8.8 6.9-10.8 fL Neutrophils (%) (Auto) 78.3 37.0-80.0 % Lymphocytes (%) (Auto) 15.5 10.0-50.0 % Monocytes (%) (Auto) 4.2 0.0-12.0 % Eosinophils (%) (Auto) 1.2 0.0-7.0 % Basophils (%) (Auto) 0.8 0.0-2.0 % Neutrophils # (Auto) 7.3 1.6-8.6 10 ^3/uL Lymphocytes # (Auto) 1.4 0.4-5.4 10 ^3/uL Monocytes # (Auto) 0.4 0-1.3 10 ^3/uL Eosinophils # (Auto) 0.1 0-0.8 10 ^3/uL Basophils # (Auto) 0.1 0-0.2 10 ^3/uL Nucleated Red Blood Cells 0.1 % Sodium Level 142 136-145 mmol/L Potassium Level 4.2 3.5-5.1 mmol/L Chloride Level 110 H 98-107 mmol/L Carbon Dioxide Level 23 20-31 mmol/L Anion Gap 9 5-15 Blood Urea Nitrogen 19 9-23 mg/dL Creatinine 1.50 H 0.700-1.30 mg/dL Glomerular Filtration Rate Calc 57 >90 mL/min BUN/Creatinine Ratio 12.7 10.0-20.0 Serum Glucose 102 74-106 mg/dL Calcium Level 9.4 8.7-10.4 mg/dL Time of 1ST Reevaluation: 20:12 Reevaluation 1ST: Unchanged Patient Education/Counseling: Diagnosis, Treatment Family Education/Counseling: No Family Present Departure 1 Departure Time of Disposition: 23:05 (Patient presented with chest pain that was concerning for possible STEMI, ACS, PE, Pneumonia, Muscle Strain, COPD, Dissection. Data: 1. I ordered and reviewed the result of at least 3 labs including a CBC, BMP, and Troponin. 2. I independently interpreted the following tests: EKG which shows sinus arrhythmia and Chest X-ray which shows _ mild vascular congestion.Risk:This patient has a high risk of morbidity due to f urther diagnostic testing or treatment and may suffer from an acute cardiac or respiratory disorder. Workup reveals concern for ACS and patient should be admitted for further workup and possible expert consultation. ) Impression: Primary Impression: Acute chest pain Disposition: ADMITTED INPATIENT Admit to: Med Surg Condition: Serious Critical Care Note Critical Care Time?: Yes (35 min-critical care time only) Critical care comment: Active chest pains Authorized and Performed by: Elvira Brooks MD Total critical care time: Approximately 32 minutes Due to a high probability of clinically significant, life threatening deterioration, the patient required my highest level of preparedness to intervene emergently and I personally spent this critical care time directly and personally managing the patient. This critical care time included obtaining a history; examining the patient; pulse oximetry; ordering and review of studies; arranging urgent treatment with development of a management plan; evaluation of patient's response to treatment; frequent reassessment; and, discussions with ot her providers. This critical care time was performed to assess and manage the high probability of imminent, life-threatening deterioration that could result in multi-organ failure. It was exclusive of separately billable procedures and treating other patients and teaching time. Please see my other sections and the rest of the note for further information on patient assessment and treatment. Stability Stability form required: No Heart Score Heart Score: Heart Score Response (Comments) Value History Moderate Suspicious 1 EKG Repolarization Disturb 1 Age 45-64 1 Risk Factors >3 or Hx ASHD 2 Troponin Normal limit 0 Total 5 I personally scribed for ELVIRA BROOKS MD ([email or web address]) on 10/07/24 at 20:17. Electronically submitted by Destin Adame ([facility]). ELVIRA BROOKS MD Oct 07, 2024 20:17
[2024-10-07 20:18] LABS: Chloride 110 mmol/L (98-107)
[2024-10-07 20:20] LABS: Glucose 102 mg/dL (74-106)
[2024-10-07 20:21] LABS: BUN/Creatinine Ratio 12.7 (10.0-20.0); Blood Urea Nitrogen 19 mg/dL (9-23)
--- NOTE | 2024-10-07 20:53 | DVH ---
EXAMINATION: AP portable chest radiograph CLINICAL HISTORY: chest pain COMPARISON: XY CHEST PORTABLE on DOS: 01/13/24, XY CHEST PORTABLE on DOS: 11/15/23, XY CHEST PORTABLE o n DOS: 09/20/23. TECHNIQUE: Single-view chest. FINDINGS: Negative AP chest. No dominant consolidations. The costophrenic angles are clear. No sizable pleural effusions or pneumo thorax identified. The cardiomediastinal silhouette appears within normal limits given technique. IMPRESSION: 1. Negative AP chest.
[2024-10-07 21:03] VITALS: PULSE 66; RESP 14; TEMP 98.7; O2SAT 96
--- NOTE | 2024-10-08 02:38 | ECG ---
[facility] Test Date: 2024-10-07 Test Time: 19:28:48 Pat Name: OLIVIER DENNISON Department: ed Room: Gender: M Waiter/Waitress Room Service: jazmin : 1975 Requested By: ELVIRA BROOKS Order Number: [id number] Reading MD: Measurements Intervals Delong Rate: 67 P: 55 MD: 151 QRS: -97 QRSD: 112 T: 46 QT: 438 QTc: 463 Interpretive Statements Sinus rhythm Incomplete RBBB and LAFB Abnormal R-wave progression, late transition Please click the below link to view image of tracing.
[2024-10-08] MEDS ORDERED: hydrALAZINE HCL 20 MG/ML VL IV PRN (05:45)
[2024-10-08] MEDS ORDERED: MORPHINE SULFATE INJ 2 MG/ml SYRG IV PRN ×2 (05:45)
[2024-10-08] MEDS ORDERED: ALPRAZolam 0.5 MG TAB PO PRN (05:45)
[2024-10-08] MEDS ORDERED: ACETAMINOPHEN 325 MG TAB PO PRN (05:45)
[2024-10-08] MEDS ORDERED: DEXTROSE (50%) 50ML SYRG IV PRN (05:45)
[2024-10-08] MEDS ORDERED: NITROGLYCERIN 0.4 MG SL TAB SL PRN (05:45)
[2024-10-08] MEDS ORDERED: HYDROcodone-ACET 5/325MG TAB PO PRN (05:45)
[2024-10-08] MEDS ORDERED: ONDANSETRON HCL 4 MG/2 ML VIAL IV PRN (05:45)
[2024-10-08] MEDS ORDERED: DOCUSATE SOD 100 MG CAP PO PRN (05:45)
--- NOTE | 2024-10-08 05:45 | DVHHP2 ---
History of Present Illness Reason for Visit: Chest pain History of Present Illness The patient is a 48-year-old male morbidly obese with past medical history of anxiety, Coronary artery disease, depression, AK, hypertension, and hyperlipidemia who presented to [facility] ED with complaint of chest pain. Patient reports symptoms progressively get worse with left arm pain, dizzy spells, radiating pain to the left shoulder rating 7/10 numeric scale, shortness of breath, weakness, getting worse that prompted this visit. Patient was seen and evaluated in the ED, laboratory data shows WBC 9.3, platelets 227, sodium 142, potassium 4.2, BUN 19, creatinine 1.50, GFR 57, glucose 102, tropon in 3, blood pressure 134/78, heart rate 67, temperature 97.9 F, O2 saturation 96% on oxygen. Chest x-ray show no evidence of acute cardiopulmonary disease. Please see medication orders section in the computer. On my assessment, patient denies chest pain at this moment, no headache, no dizziness, no diaphoresis, currently on oxygen, no nausea, no vomiting, no fever, no chills. Patient was admitted for further evaluation and medical management. Past Medical History Anxiety, CAD, Depression, High Lipids, HTN, AK Past Surgical History PTCA Family History Reviewed, noncontributory to the management of this case. Past Social History The patient lives at home, denies smoking, alcohol or illicit drugs abuse. Review of Systems Constitutional: No: Fever, Chills, Sweats, Weakness, Malaise, Other Eyes: No: Pain, Vision change, Conjunctivae inflammation, Eyelid inflammation, Other, Redness ENT: No: Ear pain, Ear discharge, Nose pain, Nose discharge, Nose congestion, Mouth pain, Mouth swelling, Throat pain, Throat swelling, Other Respiratory: Shortness of breath; No: Cough, Dry, SOB with excertion, Wheezing, Hemoptysis, Pleuritic Pain, Sputum, Wheezing, Other Cardiovascular: Chest Pain, Other (Dizzy spells, left arm pain.); No: Palpitations, Orthopnea, Paroxysmal Noc. Dyspnea, Edema, Lt Headedness Gastrointestinal: No: Nausea, Vomiting, Abdominal Pain, Diarrhea, Constipation, Melena, Hematochezia, Other Genitourinary: No Dysuria, No Frequency, No Incontinence, No Hematuria, No Retention, No Other Musculoskeletal: No: other, neck pain, shoulder pain, arm pain, back pain, hand pain, leg pain, foot pain Skin: No: Rash, Lesions, Jaundice, Bruising, Other Neurological: Weakness, Other (Dizziness); No: Numbness, Incoordination, Change in speech, Confusion, Seizures Allergies: Coded Allergies: Penicillins (Verified Allergy, Unknown, 06/15/17) Exam Vital Signs Vital Signs Date Time Temp Pulse Resp B/P (MAP) Pulse Ox O2 Delivery O2 Flow Rate FiO2 10/08/24 04:00 54 19 134/78 (96) 96 10/07/24 21:25 97.9 10/07/24 21:03 Room Air* 0 21 General Appearance: Alert, Oriented X3, Cooperative, No acute distress HEENT: Atraumatic, PERRLA, EOMI, Mucous membr. moist/pink Respiratory: Clear to auscultation, Normal air movement Cardiovascular: Regular rate, Normal S1, Normal S2, No murmurs Abdominal: Normal bowel sounds, Soft, No tenderness, No hepatospenomegaly, No masses Extremities: No clubbing, No cyanosis, No edema, Normal pulses, No tenderne ss/swelling Skin: No rashes, No breakdown, No significant lesion Neuro: Normal gait, Normal speech, Strength at 5/5 X4 ext, Normal tone, Sensation intact, Cranial nerves 3-12 NL, Reflexes 2+ Psych/Mental Status: Mental status NL, Mood NL Labs/Xrays Labs Test 10/08/24 00:42 10/07/24 19:47 Range/Units Troponin I High Sensitivity < 3 L </=54 ng/L White Blood Count 9.3 4.4-10.8 10^3/uL Red Blood Count 5.98 H 4.5-5.90 10^6/uL Hemoglobin 16.1 13.5-17.5 g/dL Hematocrit 49.1 41.0-53.0 % Mean Corpuscular Volume 82.1 80.0-100.0 fL Mean Corpuscular Hemoglobin 26.9 L 28.0-32.0 pg Mean Corpuscular Hemoglobin Concent 32.8 32.0-36.0 g/dL Red Cell Distribution Width 15.9 H 11.8-14.3 % Platelet Count 227 140-450 10^3/uL Mean Platelet Volume 8.8 6.9-10.8 fL Neutrophils (%) (Auto) 78.3 37.0-80.0 % Lymphocytes (%) (Auto) 15.5 10.0-50.0 % Monocytes (%) (Auto) 4.2 0.0-12.0 % Eosinophils (%) (Auto) 1.2 0.0-7.0 % Basophils (%) (Auto) 0.8 0.0-2.0 % Neutrophils # (Auto) 7.3 1.6-8.6 10 ^3/uL Lymphocytes # (Auto) 1.4 0.4-5.4 10 ^3/uL Monocytes # (Auto) 0.4 0-1.3 10 ^3/uL Eosinophils # (Auto) 0.1 0-0.8 10 ^3/uL Basophils # (Auto) 0.1 0-0.2 10 ^3/uL Nucleated Red Blood Cells 0.1 % Sodium Level 142 136-145 mmol/L Potassium Level 4.2 3.5-5.1 mmol/L Chloride Level 110 H 98-107 mmol/L Carbon Dioxide Level 23 20-31 mmol/L Anion Gap 9 5-15 Blood Urea Nitrogen 19 9-23 mg/dL Creatinine 1.50 H 0.700-1.30 mg/dL Glomerular Filtration Rate Calc 57 >90 mL/min BUN/Creatinine Ratio 12.7 10.0-20.0 Serum Glucose 102 74-106 mg/dL Calcium Level 9.4 8.7-10.4 mg/dL PATIENT: OLIVIER DENNISON ACCT: [id number] UNIT: [id number] : 1975 LOC: ER ROOM / BED: / AGE / SEX: 48 / M ADM STATUS: REG ER SERVICE 36 ORDERING PHYSICIAN: ELVIRA BROOKS MD PROCEDURE(s): CXRP - CHEST PORTABLE REASON: chest pain ORDER NUMBER(s): [id number], ACCESSION NUMBER(s): [id number] EXAMINATION: AP portable chest radiograph CLINICAL HISTORY: chest pain COMPARISON: XY CHEST PORTABLE on DOS: 01/13/24, XY CHEST PORTABLE on DOS: 11/15/23, XY CHEST PORTABLE on DOS: 09/20/23. TECHNIQUE: Single-view chest. FINDINGS: Negative AP chest. No dominant consolidations. The costophrenic angles are clear. No sizable pleural effusions or pneumothorax identified. The cardiomediastinal silhouette appears within normal limits given technique. IMPRESSION: 1. Negative AP chest. Assessment/Plan Assessment/Plan Acute chest pain Left arm pain Morbid obesity Acute renal injury Generalized weakness Plan 1. Admit to telemetry unit 2. Breathing treatment 3. Pain control management 4. Management of fluids and electrolytes 5. Consultation for hospitalist 6. Diagnostic tests chest x-ray 7. DVT prophylaxis-on aspirin 8. Repeat labs CBC, CMP in a.m. 9. Continue with current medical management 10. Treatment plan discussed with patient and RN. Patient verbalized understanding. Plan discussed with: Patient, Other (RN) My Orders Orders - EMMY ANGUIANO DNP Procedure Category Date Status Time Complete Blood Count LAB 10/08/24 Verified 05:35 Comprehensive LAB 10/08/24 Verified Metabolic Panel 05:35 Consistent DIET 10/08/24 Verified Carb(Ccho)Diabetes Breakfast Aspirin Tablet PHA 10/08/24 Verified 10:00 Atorvastatin (Lipitor) PHA 10/08/24 Verified 22:00 Problem List: (1) Acute chest pain (2) Left arm pain (3) Acute renal injury (4) Morbid obesity (5) Generalized weakness Date of Service: Oct 08, 2024 Billing Provider: EMMY ANGUIANO DNP Common Visit Codes: [id number] INP/OBS CARE (HIGH) EMMY ANGUIANO DNP Oct 08, 2024 05:45
[2024-10-08] MEDS: SODIUM CHLOR 0.9% PF (SALINE LOCK) 10ML VIAL/SYR IV SCH (06:05)
[2024-10-08] MEDS: InsuLIN REG 1unit/0.01ml Soln (100units/ml) SC SCH (07:00)
[2024-10-08] MEDS: ACCU-CHEK COMFORT CURVE STRIP VI SCH (07:02)
--- NOTE | 2024-10-08 07:07 | ECG ---
[facility] Test Date: 2024-10-07 Test Time: 20:53:39 Pat Name: OLIVIER DENNISON Department: ED Room: [address] [place] [address] Gender: M Healthcare Technician: SHARON : 1975 Requested By: ELVIRA BROOKS Order Number: [id number] Reading MD: Measurements Intervals [place] Rate: 65 P: 42 WV: 148 QRS: -103 QRSD: 111 T: 44 QT: 449 QTc: 467 Interpretive Statements Sinus rhythm Incomplete RBBB and LAFB Right ventricular hypertrophy Please click the below link to view image of tracing.
[2024-10-08 07:30] VITALS: PULSE 67; RESP 18; O2SAT 96
[2024-10-08] MEDS: amLODIPine BESYLATE 5 MG TAB PO SCH (10:31)
[2024-10-08] MEDS: ASPirin 81 mg TAB PO SCH (10:31)
[2024-10-08] MEDS: FAMOTIDINE (10MG/ML) 2ML VL IV SCH (10:31)
[2024-10-08] MEDS: CLOPIDOGREL BISULFATE 75 MG TAB PO SCH (10:32)
[2024-10-08 12:00] VITALS: BP 153/85; PULSE 56; RESP 18; O2SAT 98
--- NOTE | 2024-10-08 13:11 | DVHPN2 ---
Eyes: No Pain, No Vision change, No Conjunctivae inflammation, No Eyelid inflammation, No Other, No Redness ENT: No Ear pain, No Ear discharge, No Nose pain, No Nose discharge, No Nose congestion, No Mouth pain, No Mouth swelling, No Throat pain, No Throat swelling, No Other Cardiovascular: Chest Pain; No Palpitations, No Orthopnea, No Paroxysmal Noc. Dyspnea, No Edema, No Lt Headedness; Other (Dizzy spells, left arm pain.) Respiratory: No Cough, No Dry; Shortness of breath; No SOB with excertion, No Wheezing, No Hemoptysis, No Pleuritic Pain, No Sputum, No Other Gastrointestinal: No Nausea, No Vomiting, No Abdominal Pain, No Diarrhea, No Constipation, No Melena, No Hematochezia, No Other Genitourinary: No Dysuria, No Frequency, No Incontinence, No Hematuria, No Retention, No Other Musculoskeletal: No other, No neck pain, No shoulder pain, No arm pain, No back pain, No hand pain, No leg pain, No foot pain Skin: No Rash, No Lesions, No Jaundice, No Bruising, No Other Objective Vitals Vital Signs Date Time Temp Pulse Resp B/P (MAP) Pulse Ox O2 Delivery O2 Flow Rate FiO2 10/08/24 12:00 56 18 153/85 (107) 98 10/08/24 07:30 Room Air* 0 21 10/07/24 21:25 97.9 Medications Current Medications Medications Dose Ordered Sig/Dk Route Start Time Stop Time Status Last Admin Dose Admin Aspirin 81 mg DAILY PO 10/08/24 10:00 10/08/24 10:31 81 MG Atorvastatin Calcium 20 mg HS PO 10/08/24 22:00 Clopidogrel Bisulfate 75 mg DAILY PO 10/08/24 10:00 10/08/24 10:32 75 MG Alprazolam 1 mg [id number] PRN PO 10/08/24 05:45 Famotidine 20 mg DAILY IV 10/08/24 10:00 10/08/24 10:31 20 MG Hydralazine HCl 10 mg Q6HP PRN IV 10/08/24 05:45 Amlodipine Besylate 5 mg DAILY PO 10/08/24 10:00 10/08/24 10:31 5 MG Diagnostic Test (Pha) 1 strip ACHS 10/08/24 07:00 10/08/24 11:46 1 STRIP Insulin Human Regular ACHS SC 10/08/24 07:00 Dextrose 50 ml UD PRN IV 10/08/24 05:45 Sodium Chloride 10 ml Q8HR IV 10/08/24 06:00 10/08/24 06:05 10 ML Acetaminophen/ Hydrocodone Bitart 1 tab Q4HP PRN PO 10/08/24 05:45 Ondansetron HCl 4 mg Q4HP PRN IV 10/08/24 05:45 Docusate Sodium 100 mg BIDPRN PRN PO 10/08/24 05:45 Acetaminophen 650 mg Q6HP PRN PO 10/08/24 05:45 Morphine Sulfate 2 mg Q4HPRN PRN IV 10/08/24 05:45 Nitroglycerin 0.4 mg Q5MINP PRN SL 10/08/24 05:45 Morphine Sulfate 2 mg Q30M PRN IV 10/08/24 05:45 Laboratory Results Laboratory Tests 10/07/24 19:47 Chemistry Test 10/07/24 19:47 Calcium Level 9.4 mg/dL (8.7-10.4) DIVYA REEVES MD Oct 08, 2024 13:11
[2024-10-08 13:30] LABS: Basophils # (auto) 0.1 10 ^3/uL (0-0.2); Basophils % (auto) 0.8 % (0.0-2.0); Eosinophils # (auto) 0.1 10 ^3/uL (0-0.8); Eosinophils % (auto) 1.3 % (0.0-7.0); Hematocrit 46.6 % (41.0-53.0); Hemoglobin 15.2 g/dL (13.5-17.5); Lymphocytes # (auto) 1.7 10 ^3/uL (0.4-5.4); Mean Corpuscular Hemoglobin 26.8 pg (28.0-32.0); Mean Corpuscular Hgb Conc. 32.6 g/dL (32.0-36.0); Mean Corpuscular Volume 82.4 fL (80.0-100.0); Monocytes # (auto) 0.7 10 ^3/uL (0-1.3); Monocytes % (auto) 7.7 % (0.0-12.0); Neutrophils # (auto) 6.7 10 ^3/uL (1.6-8.6); Neutrophils % (auto) 72.2 % (37.0-80.0); Nucleated Red Blood Cells % 0.1 %; Platelet Count (auto) 224 10^3/uL (140-450); Red Blood Cells 5.66 10^6/uL (4.5-5.90); Red Cell Distribution Width 16.1 % (11.8-14.3); White Blood Cell 9.3 10^3/uL (4.4-10.8)
[2024-10-08 13:44] LABS: Alanine Aminotransferase 21 U/L (7-40); Alkaline Phosphatase 107 U/L (46-116); Anion Gap 6 (5-15); Aspartate Aminotransferase 15 U/L (13-40); BUN/Creatinine Ratio 10.5 (10.0-20.0); Blood Urea Nitrogen 14 mg/dL (9-23); Calcium 9.6 mg/dL (8.7-10.4); Carbon Dioxide 27 mmol/L (20-31); Glucose 93 mg/dL (74-106); Potassium 4.1 mmol/L (3.5-5.1); Sodium 141 mmol/L (136-145)
[2024-10-08 13:45] LABS: Bilirubin, Total 1.1 mg/dL (0.2-1.0); Chloride 108 mmol/L (98-107); Total Protein 7.4 g/dL (5.7-8.2)
[2024-10-08] MEDS ORDERED: ATORVASTATIN 20 MG TAB PO SCH (22:00)
--- NOTE | 2024-10-09 10:11 | DVHDS2 ---
Discharge Summary Date of Admission Oct 08, 2024 at 05:35 Date of Discharge: Oct 08, 2024 Admitting Diagnosis Acute chest pain Left arm pain Morbid obesity Acute renal injury Generalized weakness Labs/Diagnostic Data: Laboratory Results Test 10/08/24 13:06 10/08/24 11:45 10/08/24 00:42 White Blood Count 9.3 10^3/uL (4.4-10.8) Red Blood Count 5.66 10^6/uL (4.5-5.90) Hemoglobin 15.2 g/dL (13.5-17.5) Hematocrit 46.6 % (41.0-53.0) Mean Corpuscular Volume 82.4 fL (80.0-100.0) Mean Corpuscular Hemoglobin 26.8 pg (28.0-32.0) Mean Corpuscular Hemoglobin Concent 32.6 g/dL (32.0-36.0) Red Cell Distribution Width 16.1 % (11.8-14.3) Platelet Count 224 10^3/uL (140-450) Mean Platelet Volume 9.0 fL (6.9-10.8) Neutrophils (%) (Auto) 72.2 % (37.0-80.0) Lymphocytes (%) (Auto) 18.0 % (10.0-50.0) Monocytes (%) (Auto) 7.7 % (0.0-12.0) Eosinophils (%) (Auto) 1.3 % (0.0-7.0) Basophils (%) (Auto) 0.8 % (0.0-2.0) Neutrophils # (Auto) 6.7 10 ^3/uL (1.6-8.6) Lymphocytes # (Auto) 1.7 10 ^3/uL (0.4-5.4) Monocytes # (Auto) 0.7 10 ^3/uL (0-1.3) Eosinophils # (Auto) 0.1 10 ^3/uL (0-0.8) Basophils # (Auto) 0.1 10 ^3/uL (0-0.2) Nucleated Red Blood Cells 0.1 % Sodium Level 141 mmol/L (136-145) Potassium Level 4.1 mmol/L (3.5-5.1) Chloride Level 108 mmol/L (98-107) Carbon Dioxide Level 27 mmol/L (20-31) Anion Gap 6 (5-15) Blood Urea Nitrogen 14 mg/dL (9-23) Creatinine 1.33 mg/dL (0.700-1.30) Glomerular Filtration Rate Calc 66 mL/min (>90) BUN/Creatinine Ratio 10.5 (10.0-20.0) Serum Glucose 93 mg/dL (74-106) Calcium Level 9.6 mg/dL (8.7-10.4) Total Bilirubin 1.1 mg/dL (0.2-1.0) Aspartate Amino Transferase (AST) 15 U/L (13-40) Alanine Aminotransferase (ALT) 21 U/L (7-40) Alkaline Phosphatase 107 U/L (46-116) Total Protein 7.4 g/dL (5.7-8.2) Albumin 4.0 g/dL (3.2-4.8) POC Glucose 122 mg/dl (70-106) Troponin I High Sensitivity < 3 ng/L (</=54) Other Laboratory Tests 10/08/24 13:06 Brief Hx & Hospital Course: This is a 48 years old male morbid obesity with past medical history of anxiety, coronary artery disease, depression, [place], hypertension and hyperlipidemia came to emergency department because of chest pain. The patient had chest pain radiated to left arm, dizzy spell and shortness for breath. Patient also complained of weakness. Patient pain get worse so he decided to come to emergency department for further evaluation. The patient was found to have borderline high blood pressure, acute cardiopulmonary disease, acute kidney injury. The patient is waiting for supervisor ditching to evaluate however he grew inpatient and decided to leave against medical advice. We have advised the patient to stay for his renal failure and also to get evaluated by supervisor ditching due to his chest pain that radiates to the left vomit. However patient said he does not want to stay in the emergency department and he signed against medical advice. Patient aware of complication if he leave the hospital without full workup. Physical exam prior to patient sign against medical advice showed: HEENT: Normocephalic atraumatic pupils equal react to light and accommodation. Extraocular muscles intact, conjunctiva pink, oropharynx moist, no thrush, no exudate. Lymphatic: No lymphadenopathy Cardiovascular exam: S1, S2 was heard. No murmurs, rubs, gallops Lung: Clear on auscultation bilaterally, no wheeze, rale, rhonchi. GI: Abdominal soft, nondistended, nontenderness, positive bowel sounds. Extremity: No crepitus, cyanosis, edema. Pedal pulses present bilateral. Full range of motion. Skin: Normal turgor, no rash. Psych: Alert, oriented x3. Neurology: No focal deficits, cranial nerve II to XII grossly intact. This medical document was created using an electronic medical record system with [employer] direct computerized dictation system. Although this document has been carefully reviewed, there may still be some phonetic and typographical errors. These areas are purely typographical due to imperfections of the software programs, and do not reflect any compromise in the patient's medical care. Condition at Discharge: Guarded Final Diagnosis/Problems List Acute chest pain Left arm pain Morbid obesity Acute renal injury Generalized weakness Discharge Disposition: AMA Discharge Statement: "Patient was advised to return to the ER or call 911 if any headaches, dizziness, shortness of breath, chest pain, abdominal pain, bleeding, fevers, or worsening of medical condition. Patient was counseled about treatment plan, medications, possible side effects, patientverbalized understanding. All questions were answered to the best of my ability. This discharge took greater then 30 minutes in planning, reviewing documentation, counseling the patient, and discussing with other team members." ASSESSMENT ASSESSMENT Assessment Date of Service: Oct 08, 2024 Billing Provider: DIVYA REEVES MD Common Visit Codes: 43290-RFZ/OBS SAME DATE (HIGH) DIVYA REEVES MD Oct 09, 2024 10:11
--- NOTE | 2024-10-10 11:07 | ECG ---
[facility] Test Date: 2024-10-07 Test Time: 22:39:11 Pat Name: OLIVIER DENNISON Department: er Room: [address] [place] [address] Gender: M Research Spec: jazmin : 1975 Requested By: ELVIRA BROOKS Order Number: [id number] Reading MD: Measurements Intervals [place] Rate: 69 P: 40 WI: 141 QRS: -126 QRSD: 107 T: 26 QT: 473 QTc: 507 Interpretive Statements Sinus rhythm Incomplete RBBB and LAFB Low voltage, precordial leads Right ventricular hypertrophy Abnormal lateral Q waves Prolonged QT interval Please click the below link to view image of tracing.
== END 2024-10-08 15:30 | disposition left against medical advice (07) | DRG 199 ==
LOC: ER 19:27 → EDBD 19:27 → TELE 10-08 05:35
PROVIDERS: ADMIT Nurse Practitioner Family; ATTEND Nurse Practitioner Family
DX: I16.0 Hypertensive urgency (principal); N17.9 Acute kidney failure, unspecified; I25.10 Atherosclerotic heart disease of native coronary artery without angina pectoris; E78.5 Hyperlipidemia, unspecified; E66.01 Morbid (severe) obesity due to excess calories; M79.602 Pain in left arm; F32.A Depression, unspecified; Z53.29 Procedure and treatment not carried out because of patient's decision for other reasons; F41.9 Anxiety disorder, unspecified; I10 Essential (primary) hypertension; Z88.0 Allergy status to penicillin; Z82.49 Family history of ischemic heart disease and other diseases of the circulatory system; Z83.3 Family history of diabetes mellitus; Z68.24 Body mass index [BMI] 24.0-24.9, adult
CPT/HCPCS: 36415; 71045; 80048; 80053; 82962; 84484; 85025; 93005; 99291; G0378; J3490